=== PATIENT | male | born 1975 | race African-American/Black ===

== ENCOUNTER 2017-11-26 23:36 | Emergency (ER) | payer MEDICAID ==
[~2017-11-26] VITALS: Ht 177.8 cm; Wt 75.0 kg
[2017-11-27] MEDS ORDERED: AZITHROMYCIN 500 MG TABLET PO SCH (05:45)
[2017-11-27] MEDS ORDERED: CEFTRIAXONE SODIUM 250 MG/VIAL IM ONE (05:45)
[2017-11-27] MEDS: AZITHROMYCIN 500 MG TABLET PO SCH ×2 (05:58→06:34)
[2017-11-27 05:59] LABS: CLARITY URINE CLEAR (CLEAR); COLOR URINE YELLOW (YELLOW); KETONES URINE NEGATIVE (NEGATIVE); LEUKOCYTE ESTERASE URINE NEGATIVE (NEGATIVE); NITRITE URINE NEGATIVE (NEGATIVE); OCCULT BLOOD URINE NEGATIVE (NEGATIVE); PROTEIN URINE NEGATIVE (NEGATIVE); SPECIFIC GRAVITY URINE 1.026 (1.005-1.030)
[2017-11-27] MEDS ORDERED: STERILE WATER FOR INJECTION 10ML VIAL ONE (05:59)
[2017-11-27 06:57] VITALS: BP 138/71
[2017-12-01 08:16] LABS: CHLAMYDIA TRACHOMATIS NAA Negative (Negative); NEISSERIA GONORRHOEAE NAA Negative (Negative)
== END 2017-11-27 06:58 | disposition home or self-care (01) ==
LOC: ER 23:36
DX: N48.1 Balanitis (principal)
CPT/HCPCS: 81003; 87491; 87591; 96372; 99284; A4216; J0696

== ENCOUNTER 2022-03-25 16:58 | Emergency (ER) | payer MEDICAID ==
[~2022-03-25] VITALS: Ht 177.8 cm; Wt 75.0 kg
[2022-03-25] MEDS ORDERED: KETOROLAC 60MG/2ML VIAL IM ONE (18:45)
[2022-03-25] MEDS ORDERED: CYCL10TA21 MT (20:00)
[2022-03-25] MEDS ORDERED: IBUP-2029 MT (20:00)
[2022-03-25 20:10] VITALS: BP 112/78
== END 2022-03-25 20:10 | disposition home or self-care (01) ==
LOC: ER 16:58
DX: M25.511 Pain in right shoulder (principal); Z98.890 Other specified postprocedural states; V43.52XA Car driver injured in collision with other type car in traffic accident, initial encounter; Y93.89 Activity, other specified; Y92.411 Interstate highway as the place of occurrence of the external cause
CPT/HCPCS: 72040; 73030; 96372; 99284; J1885